=== PATIENT | female | born 1960 | race Caucasian/White ===

== ENCOUNTER 2016-10-26 08:18 | Day surgery (SDC) | payer OTHER ==
[2016-10-26 08:59] VITALS: BMI 25.4
[2016-10-26 10:06] VITALS: TEMP 97.5
[2016-10-26 11:53] VITALS: BP 128/82; PULSE 53
== END 2016-10-26 11:53 | disposition home or self-care (01) ==
LOC: JASU-ENDO 08:18
PROVIDERS: ATTEND Internal Medicine Gastroenterology
PROC: 0DJD8ZZ Inspection of Lower Intestinal Tract, Via Natural or Artificial Opening Endoscopic (ICD-10-PCS; principal; 2016-10-26 09:00)
DX: Z86.010 Personal history of colon polyps (principal); K57.30 Diverticulosis of large intestine without perforation or abscess without bleeding; K64.8 Other hemorrhoids; K55.20 Angiodysplasia of colon without hemorrhage